=== PATIENT | female | born 1960 ===

== ENCOUNTER 2024-08-23 06:38 | Day surgery (SDC) | payer OTHER ==
[~2024-08-23 06:38] MED LIST: LOSARTAN-HCTZ1 EAC2 PO; NORVASC10 MG PO; SINGULAIR10 MG PO; SYNTHROID200 MCG PO; ZOCOR40 MG PO
[2024-08-23] MEDS ORDERED: LIDOCAINE HCL 1% 20ML VIAL IJ ONE (12:15)
[2024-08-23] MEDS ORDERED: CEFAZOLIN SODIUM 1,000 MG VIAL IV ONE (12:15)
[2024-08-23] MEDS ORDERED: CEPHALEXIN250 MG PO (13:08)
[2024-08-23] MEDS ORDERED: TRAM1TAB98 PO (13:08)
== END 2024-08-23 14:25 | disposition home or self-care (01) ==
LOC: CIR.AMB 06:38
PROVIDERS: ATTEND Obstetrics & Gynecology Gynecology
DX: N39.41 Urge incontinence (principal); R15.9 Full incontinence of feces; N32.81 Overactive bladder; I10 Essential (primary) hypertension; E11.9 Type 2 diabetes mellitus without complications; E03.9 Hypothyroidism, unspecified; J45.909 Unspecified asthma, uncomplicated
CPT/HCPCS: 64581; 64590; 95972; C1767